=== PATIENT | male | born 1955 | race Caucasian/White ===

== ENCOUNTER 2016-08-26 20:27 | Emergency (ER) | payer OTHER ==
[~2016-08-26] VITALS: Ht 182.9 cm; Wt 79.4 kg
[~2016-08-26 20:27] MED LIST: NO REPORTED MEDS
--- NOTE | 2016-08-26 20:29 | NUR ---
PT C/O COUGH BACK PAIN AND FEVER X 3 DAYS PT DENIES ANY TAKING MEDS BEFORE. AWAITING MD ORDER. VSS
--- NOTE | 2016-08-26 20:55 | NUR ---
PRIVATE INQUIRY AGENT AT BEDSIDE
[2016-08-26 21:57] VITALS: BP 129/75
--- NOTE | 2016-08-26 21:58 | NUR ---
Patient discharged to home in stable condition. Written and verbal after care instructions given. Patient verbalizes understanding of instruction. pt ambulatory with a steady gait VITAL SIGNS WITHIN NORMAL LIMITS.
== END 2016-08-26 21:59 | disposition home or self-care (01) ==
LOC: ER 20:27
DX: J40 Bronchitis, not specified as acute or chronic (principal); M54.9 Dorsalgia, unspecified
CPT/HCPCS: 71010; 99283; A4606; Z7610

== ENCOUNTER 2016-11-02 23:16 | Emergency (ER) | payer MEDICAID, OTHER ==
[~2016-11-02] VITALS: Ht 185.4 cm; Wt 83.9 kg
[2016-11-02 23:27] VITALS: BP 122/90
== END 2016-11-02 23:41 | disposition home or self-care (01) ==
LOC: ER 23:24
DX: J70.5 Respiratory conditions due to smoke inhalation (principal)
CPT/HCPCS: 99281; A4606; Z7610; Z7502

== ENCOUNTER 2016-12-07 20:20 | Emergency (ER) | payer MEDICAID, OTHER ==
[~2016-12-07] VITALS: Ht 185.4 cm; Wt 81.6 kg
--- NOTE | 2016-12-07 20:26 | NUR ---
PT AMBULATORY TO ER BED 10 C/O ON AND OFF CHEST PAIN THAT STARTED THIS AFTERNOON. PT STATES HAD THE SAME SYMPTOMS 3 MONTHS AGO. PT STATES WORST TODAY. DESCRIBING IT PRESSURE LIKE AND WORST AFTER A MEAL. GOWNED AND PLACED ON MONITOR. AWAITING MD KINNEY.
--- NOTE | 2016-12-07 20:35 | NUR ---
IV LINE STARTED BLOOD DRAWN AND SENT TO LAB.
--- NOTE | 2016-12-07 20:37 | NUR ---
DR ROMEO AT BEDSIDE FOR EVAL.
[2016-12-07 20:40] LABS: BASOPHILS # (AUTO) 0.1 /CMM (0.0-0.2); BASOPHILS % (AUTO) 1.3 % (0.0-2.0); EOSINOPHILS # (AUTO) 0.4 /CMM (0.0-0.7); EOSINOPHILS % (AUTO) 4.5 % (0.0-6.0); HEMATOCRIT 46 % (39-51); HEMOGLOBIN 15.7 g/dL (13.5-17.5); LYMPHOCYTES # (AUTO) 3.6 /CMM (0.8-4.8); LYMPHOCYTES % (AUTO) 40.2 % (20.0-44.0); MEAN CORPUSCULAR HEMOGLOBIN 32 PG (26.0-33.0); MEAN CORPUSCULAR HGB CONC 34 g/dl (31.0-36.0); MEAN CORPUSCULAR VOLUME 94 fL (80-96); MONOCYTES # (AUTO) 0.6 /CMM (0.1-1.30); MONOCYTES % (AUTO) 6.7 % (2.0-12.0); NEUTROPHILS # (AUTO) 4.2 /CMM (1.8-8.9); NEUTROPHILS % (AUTO) 47.3 % (43.0-81.0); PLATELET COUNT (AUTO) 300 /CMM (150-450); RDW COEFFICIENT OF VARIATION 14.4 (11.5-15.0); RED BLOOD CELL COUNT(AUTO) 4.93 MIL/uL (4.5-6.0); WHITE BLOOD COUNT (AUTO) 8.9 K/uL (4.3-11.0)
--- NOTE | 2016-12-07 20:42 | NUR ---
RADIOLOGY AT BEDSIDE FOR CHEST XRAY.
[2016-12-07] MEDS ORDERED: MAG HYDROX/AL HYDROX/SIMETH 30 ML UDC ONE (20:45)
[2016-12-07] MEDS ORDERED: FAMOTIDINE (20 MG) 20 MG TABLET ONE (20:45)
[2016-12-07 20:48] LABS: CALCIUM, SERUM 8.8 mg/dL (8.5-10.1); CARBON DIOXIDE 27 mmol/L (21-32); CHLORIDE 104 mmol/L (98-107); CREATININE 1.1 mg/dL (0.6-1.3); GLUCOSE 99 mg/dL (74-106); POTASSIUM 4.5 mmol/L (3.5-5.1); SODIUM SERUM 140 mmol/L (136-145); UREA NITROGEN, BLOOD 24 mg/dL (7-18)
[2016-12-07 20:52] LABS: INR 0.93 (0.87-1.13); PROTHROMBIN TIME 9.7 SECS (9.5-12.7)
[2016-12-07 20:58] LABS: TROPONIN I < 0.017 ng/mL (0.00-0.056)
[2016-12-07] MEDS ORDERED: FAMOTIDINE (20 MG) 20 MG TABLET PO ONE (21:00)
[2016-12-07] MEDS ORDERED: MAG HYDROX/AL HYDROX/SIMETH 30 ML UDC PO ONE (21:00)
--- NOTE | 2016-12-07 21:59 | NUR ---
Patient discharged to home in stable condition. Written and verbal after care instructions given. Patient verbalizes understanding of instruction.IV removed. Catheter intact and site benign. Pressure and 4x4 applied to site. No bleeding noted.
[2016-12-07 22:02] VITALS: BP 125/76
== END 2016-12-07 22:03 | disposition home or self-care (01) ==
LOC: ER 20:23
DX: R07.89 Other chest pain (principal); K29.00 Acute gastritis without bleeding
CPT/HCPCS: 36415; 71010; 80048; 84484; 85025; 85730; 93005; 99285; A4606; Z7610

== ENCOUNTER 2018-12-06 23:49 | Emergency (ER) | payer OTHER, MEDICAID ==
[2018-12-07] MEDS ORDERED: NITROGLYCERIN 0.4 MG/TAB BOTTLE ONE (00:15)
[2018-12-07] MEDS ORDERED: NITROGLYCERIN 0.4 MG/TAB BOTTLE SL ONE (00:30)
== END 2018-12-07 01:46 | disposition left against medical advice (07) ==
DX: R07.89 Other chest pain (principal); Z88.6 Allergy status to analgesic agent; Z60.2 Problems related to living alone

== ENCOUNTER 2021-03-06 23:01 | Emergency (ER) | payer MEDICARE, MEDICAID ==
[~2021-03-06] VITALS: Ht 185.4 cm; Wt 83.9 kg
--- NOTE | 2021-03-06 23:37 | NUR ---
CALLED FOR TRIAGE. NO ANSWER
[2021-03-07] MEDS ORDERED: AZIT250T13 PO (01:07)
[2021-03-07] MEDS ORDERED: AZITHROMYCIN 250 MG TABLET ONE (01:14)
[2021-03-07] MEDS: AZITHROMYCIN 250 MG TABLET PO ONE (01:18)
[2021-03-07 01:19] VITALS: BP 135/70
--- NOTE | 2021-03-07 01:19 | NUR ---
Patient discharged to home in stable condition. Written and verbal after care instructions given. Patient verbalizes understanding of instruction.
== END 2021-03-07 01:19 | disposition home or self-care (01) ==
LOC: ER 23:03
DX: J18.9 Pneumonia, unspecified organism (principal); Z86.16 Personal history of COVID-19; F17.200 Nicotine dependence, unspecified, uncomplicated; Z88.6 Allergy status to analgesic agent
CPT/HCPCS: 71045-TC

== ENCOUNTER 2021-03-19 00:03 | Emergency (ER) | payer MEDICARE, OTHER ==
[~2021-03-19] VITALS: Ht 185.4 cm; Wt 83.9 kg
[~2021-03-19 00:03] MED LIST changes: +AZIT250T13 PO
[2021-03-19 00:28] VITALS: BP 150/87
--- NOTE | 2021-03-19 00:35 | NUR ---
BIBSELF C/O FEVER X2 WEEKS. REQUESTING CHEST XRAY. PATIENT NORMAL BASELINE IS A&OX1. PLACED IN BED 02 ON MONITOR AND POX.
--- NOTE | 2021-03-19 02:52 | NUR ---
CALLED JOESPH TO HAVE IMAGE READ
[2021-03-19] MEDS ORDERED: AMOX-428 PO (03:31)
[2021-03-19] MEDS ORDERED: DOXY-326 PO (03:31)
--- NOTE | 2021-03-19 03:33 | NUR ---
Patient discharged to home in stable condition. Written and verbal after care instructions given. Patient verbalizes understanding of instruction.
== END 2021-03-19 03:36 | disposition home or self-care (01) ==
LOC: ER 00:04
DX: R91.8 Other nonspecific abnormal finding of lung field (principal); J18.9 Pneumonia, unspecified organism; F17.210 Nicotine dependence, cigarettes, uncomplicated; Z88.6 Allergy status to analgesic agent; Z79.899 Other long term (current) drug therapy
CPT/HCPCS: 71045-TC